=== PATIENT | female | born 1980 | race Caucasian/White ===

== ENCOUNTER 2025-03-15 16:18 | Emergency (ER) | payer OTHER, SELFPAY ==
--- NOTE | ~2025-03-15 | XR_ITS ---
EXAMINATION: XR chest 2V 03/15/2025 16:50 INDICATION: Shortness of breath PROCEDURE: 2 view chest COMPARISON: 11/24/2004 FINDINGS: The lungs are clear. The cardiomediastinal silhouette is within normal limits. There are no pleural effusions. There is no pneumothorax suspected. Calcified granuloma present in the left lung base. IMPRESSION: 1: NO ACUTE CARDIOPULMONARY DISEASE. Reviewed, dictated and finalized at location I. RRAL CLERK
--- NOTE | 2025-03-15 16:22 | ECG_ITS ---
Test Date: 2025-03-15 16:34:29 Measurements Intervals [place] Rate: 81 P: 67 MO: 145 QRS: 54 QRSD: 73 T: 51 QT: 344 QTc: 402 Interpretive Statements SINUS RHYTHM NORMAL ECG No previous ECG available for comparison Electronically Signed On 03-15-2025 16:36:58 SPECTROGRAPH OPERATOR by Praful Engle D.O.
[2025-03-15 16:29] VITALS: BP 151/85; PULSE 89; RESP 20; TEMP 36.8; O2SAT 100
[2025-03-15 18:00] VITALS: PULSE 91
[2025-03-15 18:04] LABS: Hematocrit 42.2 % (37.0-47.0); Hemoglobin 14.0 g/dL (12.0-15.0); Immature Granulocyte Percent A 0.3 % (0-0.5); Lymphocytes Absolute Auto 1.99 K/mm3 (0.9-3.2); Mean Corpuscular HGB Conc 33.2 g/dl (32-36); Mean Corpuscular Hemoglobin 31.3 pg (26-34); Mean Corpuscular Volume 94.4 fl (80-100); Nucleated Red Blood Cells Absolute Auto 0.000 K/mm3 (0.0-0.012); Nucleated Red Blood Cells Perc 0.0 % (0.0-0.2); Platelet Count Result 263 k/mm3 (150-375); Red Blood Count 4.47 M/mm3 (4.2-5.4); White Blood Count 9.2 K/mm3 (4.5-10.0)
--- NOTE | 2025-03-15 18:12 | ED.SOB ---
HPI - SOB/Dyspnea General Chief Complaint: Shortness of Breath/Dyspnea Stated Complaint: SOB since last night, sent from Time Seen by Provider: 03/15/25 17:57 History of Present Illness HPI Narrative: Patient is a 44-year-old female who presents to the ER with shortness of breath. She reports she started experiencing the symptoms last night while she was sleeping. Patient reports she 1 went to urgent care earlier today and they diagnosed her with bronchitis, but suggested she come to the ER for further evaluation. She denies any cough, congestion, recent fevers or chest pain. Patient endorses a history of an IUD and takes Claritin for seasonal allergies. Related Data Allergies Allergy/AdvReac Type Severity Reaction Status Date / Time Penicillins Allergy Mild Unknown Verified 03/15/25 17:58 Review of Systems Review of Systems: All systems reviewed & are unremarkable except as noted in HPI and below Exam Narrative: GENERAL: Well appearing, well-nourished, non-toxic, in no acute distress. HEAD: Normocephalic, atraumatic. NECK: Supple. No adenopathy, no masses. RESPIRATORY: Airway patent, respirations nonlabored. Clear to auscultation bilaterally, no rales, rhonchi, wheezing. CARDIOVASCULAR: Regular rate and rhythm without murmurs, rubs, or gallops. Peripheral pulses 2+ and equal bilaterally. ABDOMINAL: Soft, nontender, nondistended, no hepatosplenomegaly. Normoactive BS. MUSCULOSKELETAL: Moves all extremities. Strength/ROM intact without gross deformities. SKIN: Warm, dry, normal color. No rashes. NEURO: A&O X3. Speech clear. Cranial nerves II-XII intact. No ataxic movements. PSYCHIATRIC: Appropriate mood and affect. Normal interaction. Course Vital Signs Vital signs: Vital Signs Temperature 36.8 C 03/15/25 16: Pulse Rate 89 03/15/25 16: Respiratory Rate 20 03/15/25 16: Blood Pressure 151/85 H 03/15/25 16: Pulse Oximetry 100 03/15/25 16:29 Oxygen Delivery Room Air 03/15/25 16: Temperature 36.9 C 03/15/25 20:01 Pulse Rate 99 03/15/25 20:01 Respiratory Rate 19 03/15/25 20:01 Blood Pressure 140/78 03/15/25 20:01 Pulse Oximetry 98 12/04/25 20:01 Oxygen Delivery Room Air 03/15/25 19:[address] [facility] MDM Narrative Medical decision making narrative: Patient is a 44-year-old female who presents to the ER with shortness of breath. She reports she started experiencing the symptoms last night while she was sleeping. Patient reports she 1 went to urgent care earlier today and they diagnosed her with bronchitis, but suggested she come to the ER for further evaluation. She denies any cough, congestion, recent fevers or chest pain. Patient endorses a history of an IUD and takes Claritin for seasonal allergies. She reports last night they ran their humidifier for the 1st time this season. Labs Ordered: CBC, CMP, proBNP, D-dimer, COVID/flu/RSV Imaging Ordered: Chest x-ray Medications Ordered: None necessary, patient declined medication administration Results: Patient's blood work was unremarkable. Her chest x-ray indicates no acute abnormalities. Diagnosis: Environmental allergies, mild dyspnea Patient Education/Shared MDM: Results of lab work and imaging shared with patient. She endorses improvement of symptoms as she has been here in the emergency department. Patient continues to deny chest pain. She continues to decline medication administration. Patient strongly advised to maintain hydration status upon discharge and follow-up with her PCP in the next 2-3 days for further evaluation. She will not be discharged home with any new prescriptions. Strict return precautions provided. Patient verbalized understanding and is in agreement with plan. Vital signs stable at time of discharge. All questions answered. Differential Diagnosis Differential Diagnosis: COVID, pneumonia, bronchitis, pulmonary embolism Lab Data [facility] Lab Attestation statement: I personally reviewed the patient's lab results. 03/15/25 17:56 03/15/25 18:53 Labs: Lab Results 03/15/25 03/15/25 03/15/25 Range/Units 17:56 18:49 18:53 WBC 9.2 (4.5-10.0) K/mm3 RBC 4.47 (4.2-5.4) M/mm3 Hgb 14.0 (12.0-15.0) g/dL Hct 42.2 (37.0-47.0) % MCV 94.4 (80-100) fl MCH 31.3 (26-34) pg MCHC 33.2 (32-36) g/dl RDW 12.2 (11.5-14.5) % Plt Count 263 (150-375) k/mm3 MPV 10.5 H (7.4-10.4) fl Immature Gran % (Auto) 0.3 (0-0.5) % Neut % (Auto) 62.5 (45.5-73.1) % Lymph % (Auto) 21.6 (18.3-44.2) % [place] % (Auto) 7.2 (2.6-8.5) % Eos % (Auto) 7.6 H (0-4.4) % Baso % (Auto) 0.8 (0.2-1.2) % Lymph # (Auto) 1.99 (0.9-3.2) K/mm3 [place] # (Auto) 0.7 H (0.1-0.6) K/mm3 Eos # (Auto) 0.7 H (0-0.3) K/mm3 Baso # (Auto) 0.1 (0.0-0.1) K/mm3 Abs Immat Gran (auto) 0.03 (0.00-0.031) K/mm3 Absolute Neuts (auto) 5.8 (1.3-6.7) K/mm3 Absolute Nucleated RBC 0.000 (0.0-0.012) K/mm3 Nucleated RBC % 0.0 (0.0-0.2) % D-Dimer < 0.27 (<0.48) ug/mL Sodium 138 (137-145) mmol/L Potassium 3.9 (3.4-5.0) mmol/L Chloride 108 H (98-107) mmol/L Carbon Dioxide 27 (22-30) mmol/L Anion Gap 3 L (4-12) mmol/L BUN 10 (7-17) mg/dL Creatinine 0.84 (0.7-1.0) mg/dL Estim Creat Clear Calc 84 ml/min Estimated GFR > 60 (59 - ) Glucose 99 (65-110) mg/dL Calcium 9.3 (8.4-10.2) mg/dL Total Bilirubin 0.9 (0.2-1.3) mg/dL AST 20 (14-36) U/L ALT 23 (6-35) U/L Alkaline Phosphatase 91 (38-126) U/L NT-Pro-B Natriuret Pep 41 (19.9-100) pg/mL Total Protein 7.3 (6.3-8.2) g/dL Albumin 4.2 (3.5-5.1) g/dL Influenza A (RT-PCR) Negative (Negative) Influenza B (RT-PCR) Negative (Negative) RSV (RT-PCR) Negative (Negative) SARS-CoV-2 RNA (RT-PCR) Negative (Negative) Imaging Data Attestation: I personally reviewed and interpreted this imaging study as follows: Radiologist's impression: ITS Impressions Chest X-Ray 03/15/25 16:55 IMPRESSION: 1: NO ACUTE CARDIOPULMONARY DISEASE. Discharge Plan Discharge Clinical Impression: Environmental allergies, Mild shortness of breath Patient Disposition: Home Condition: Stable Instructions: Antibiotic Form, Shortness of Breath (ED) Additional Instructions: Please return to the ER with any worsening symptoms. Follow-up with primary care provider as needed for further evaluation. You may use Flonase as needed to help open up your sinuses, which may be inflamed due to exposure to environmental allergen. Please continue to take your Claritin daily. Remember to drink lots of water. Patient Language: Citizen Of [place] Follow-up/Referrals: Yusef,Alessio Cyr MD [Primary Care Provider, Unknown] Stand Alone Forms: Work/School Release IP Time of Disposition: 20:40
[2025-03-15 19:14] LABS: Alanine Aminotransferase 23 U/L (6-35); Albumin Level 4.2 g/dL (3.5-5.1); Alkaline Phosphatase 91 U/L (38-126); Anion Gap 3 mmol/L (4-12); Aspartate Amino Transferase 20 U/L (14-36); Bilirubin,Total 0.9 mg/dL (0.2-1.3); Blood Urea Nitrogen 10 mg/dL (7-17); Calcium 9.3 mg/dL (8.4-10.2); Carbon Dioxide 27 mmol/L (22-30); Chloride 108 mmol/L (98-107); Estimated CRCL calculation 84 ml/min; Estimated Glomerular Filt Rate > 60; Glucose 99 mg/dL (65-110); Potassium 3.9 mmol/L (3.4-5.0); Sodium 138 mmol/L (137-145); Total Protein 7.3 g/dL (6.3-8.2)
[2025-03-15 19:18] VITALS: PULSE 90; RESP 20; O2SAT 99
[2025-03-15 19:22] LABS: NT Pro B Type Natriuretic Pept 41 pg/mL (19.9-100)
[2025-03-15 19:48] LABS: Influenza A QL RT-PCR Negative (Negative); Influenza B QL RT-PCR Negative (Negative); RSV RNA, RT-PCR Negative (Negative); SARS-CoV-2 RNA PCR Negative (Negative)
[2025-03-15 20:01] VITALS: BP 140/78; PULSE 99; RESP 19; TEMP 36.9; O2SAT 98
[2025-03-15 20:51] VITALS: BP 141/84; PULSE 99; RESP 15; TEMP 36.8; O2SAT 99
== END 2025-03-15 21:05 | disposition home or self-care (01) ==
PROVIDERS: Emergency Medicine; Emergency Provider Registered Nurse; PCP Family Medicine
DX: R06.02 Shortness of breath (principal); J30.2 Other seasonal allergic rhinitis; Z20.822 Contact with and (suspected) exposure to COVID-19; Z97.5 Presence of (intrauterine) contraceptive device
CPT/HCPCS: 36415; 71046; 80053; 83880; 85025; 85380; 87637; 93005; 99284